=== PATIENT | male | born 1945 | race Caucasian/White ===

== ENCOUNTER → 2020-05-09 | Outpatient (CLI) | payer MEDICARE, BC ==
[2020-05-09 18:13] LABS: Gliadin AB IgA, Deaminated NEGATIVE (NEGATIVE); Gliadin AB IgA, Unit <0.2 U/mL; Gliadin AB IgG, Deaminated NEGATIVE (NEGATIVE)
== END | disposition home or self-care (01) ==
LOC: LABWHC1 09:44
PROVIDERS: ATTEND Nurse Practitioner
DX: K52.9 Noninfective gastroenteritis and colitis, unspecified (principal)
CPT/HCPCS: 36415; 83516; 85652; 86140

== ENCOUNTER → 2021-10-13 | Outpatient (CLI) | payer BC, MEDICARE, OTHER ==
[2021-10-13 11:20] LABS: African American GFR (CKD) >90 (>60 ml/min/1.73 sqM); Blood Urea Nitrogen 20 mg/dL (9-20); Non-African American GFR(CKD) 85 (>60 ml/min/1.73 sqM)
--- NOTE | 2021-10-13 15:49 | CT ---
EXAMINATION TYPE: CT ChestAbdPelvis wo/w con CT DLP: 3272 mGycm, Automated exposure control for dose reduction was used. DATE OF EXAM: 10/13/2021 12:30 PM COMPARISON: None CLINICAL INDICATION:Male, 76 years old with history of R91.1 SPN R63.4 abnormal weight loss, Abnorma l weight loss Technique: Multiple axial images of the chest, abdomen, and pelvis were obtained. Two-dimensional cor onal and sagittal reconstructions were obtained. Contrast used:70 mL of Isovue 300 without and with IV Contrast, Oral contrast used: with Oral Contrast Findings: CHEST: LUNGS/ PLEURA: No evidence of focal consolidation, pneumothorax or pleural effusion. Scattered reticu lar opacities are seen throughout the lungs. Mild calcified scarring along the major fissure on the r ight. Calcifications are also seen along the pleura on the right dome of the diaphragm. AIRWAY: Patent and unremarkable. HEART: Heart is moderately enlarged for size. There is left atrial appendage occlusion device. There is moderate to severe coronary artery atherosclerosis. MEDIASTINUM: No gross evidence of adenopathy. VASCULATURE: No aortic aneurysm. No evidence of pulmonary embolism. MUSCULOSKELETAL: No acute osseous abnormalities. SOFT TISSUES/LYMPH NODES: Right chest wall conduction device with leads remain in the right atrium an d right ventricle. Rotator cuff repair changes of left shoulder. Mild bilateral gynecomastia changes. LOWER NECK: No significant findings. ABDOMEN: ABDOMEN LIVER: Unremarkable GALLBLADDER AND BILE DUCTS: The gallbladder is surgically absent. PANCREAS: Unremarkable. SPLEEN: Unremarkable. ADRENAL GLANDS: Unremarkable. KIDNEYS AND URETERS: No evidence of hydronephrosis. Left nonobstructing 3 mm calculus. PELVIS BLADDER: Unremarkable REPRODUCTIVE: Unremarkable. ABDOMEN & PELVIS STOMACH AND BOWEL: Small hiatal hernia, duodenum is unremarkable. No evidence of bowel obstruction. PERITONEUM: No evidence of pneumoperitoneum or free fluid. VASCULATURE: Moderate atherosclerotic calcifications are present throughout the abdominal aorta and i ts branches. MUSCULOSKELETAL: No acute osseous abnormalities. Moderate disc degeneration changes are present throu ghout the thoracolumbar spine. There is large Schmorl's node in the superior endplate of L3. Right hi p arthroplasty changes which limits evaluation the pelvis. Hardware appears intact. LYMPH NODES: No gross evidence for lymphadenopathy. SOFT TISSUE/ABDOMINAL WALL: Fat-containing umbilical hernia. IMPRESSION: 1. No evidence of mass or acute finding. 2. Cardiomegaly. 3. Moderate to severe coronary artery atherosclerosis. 4. Nonobstructing left renal calculus. 5. Right-sided pleural calcifications which can be seen in the setting of asbestos exposure.
== END | disposition home or self-care (01) ==
LOC: RADCTMAIN 10:03
DX: R63.4 Abnormal weight loss (principal); R91.1 Solitary pulmonary nodule
CPT/HCPCS: 82565; 84520; 71270; 74178; 36415; Q9967 ×2